=== PATIENT | female | born 1990 | race African-American/Black ===

== ENCOUNTER 2021-09-09 18:46 | Emergency (ER) | payer OTHER ==
[~2021-09-09] VITALS: Ht 167.6 cm; Wt 86.2 kg
[~2021-09-09 18:46] MED LIST: AMOXICILLIN 50500 M1 PO; BENADRYL25 MG PO; CLARITIN10 M2 PO; PREDNISONE50 MG PO; TESSALON PERLE100 MG PO
[2021-09-09 19:34] LABS: HEMATOCRIT 33.4 % (37.0-47.0); HEMOGLOBIN 11.4 gm/dL (12.0-15.0); MCH 30.3 pg (26.0-34.0); MCHC 34.1 g/dL (28.0-37.0); MCV 88.9 fL (80.0-100.0); RBC 3.76 mil/uL (4.20-5.00); WBC 6.1 thou/uL (4.0-11.0)
[2021-09-09 19:42] LABS: ANION GAP < 0 mmol/L (7-16); BUN 16 mg/dL (7-18); CALCIUM 8.8 mg/dL (8.5-10.1); CHLORIDE 102 mmol/L (98-107); CO2 39 mmol/L (21-32); CREATININE 0.8 mg/dL (0.6-1.0); GLUCOSE 96 mg/dL (74-106); POTASSIUM 3.7 mmol/L (3.5-5.1); SODIUM 138 mmol/L (136-145)
[2021-09-09] MEDS ORDERED: NORCO5 PO (21:04)
[2021-09-09 21:11] VITALS: BP 120/69
== END 2021-09-09 21:11 | disposition home or self-care (01) ==
LOC: ER 18:46
PROVIDERS: Nurse Practitioner Family
DX: O03.4 Incomplete spontaneous abortion without complication (principal); R22.9 Localized swelling, mass and lump, unspecified; Z91.09 Other allergy status, other than to drugs and biological substances; Z79.899 Other long term (current) drug therapy; Z79.891 Long term (current) use of opiate analgesic; Z88.2 Allergy status to sulfonamides; Z88.8 Allergy status to other drugs, medicaments and biological substances

== ENCOUNTER 2022-01-08 15:08 | Emergency (ER) | payer OTHER, BC ==
[~2022-01-08] VITALS: Ht 167.6 cm; Wt 86.2 kg
[~2022-01-08 15:08] MED LIST changes: +NORCO5 PO
[2022-01-08 15:13] VITALS: BP 112/73
[2022-01-08] MEDS ORDERED: NAPROSYN500 MG PO (16:15)
[2022-01-08] MEDS ORDERED: MEDROLDOSEPACK PO (16:15)
[2022-01-08] MEDS ORDERED: FLEXERIL PO (16:15)
== END 2022-01-08 16:15 | disposition home or self-care (01) ==
LOC: ER 15:08
DX: S16.1XXA Strain of muscle, fascia and tendon at neck level, initial encounter (principal); S39.012A Strain of muscle, fascia and tendon of lower back, initial encounter; Z88.1 Allergy status to other antibiotic agents; Z88.2 Allergy status to sulfonamides; V49.49XA Driver injured in collision with other motor vehicles in traffic accident, initial encounter; Y93.I9 Activity, other involving external motion; Y92.488 Other paved roadways as the place of occurrence of the external cause; Y99.8 Other external cause status